=== PATIENT | male | born 1950 | race Two or more races ===

== ENCOUNTER 2016-03-26 08:50 | Day surgery (SDC) | payer MEDICARE, OTHER ==
[~2016-03-26 08:50] MED LIST: FENTANYL 250 MCG/5 ML AMP IV PRN; LACTATED RINGERS 1,000 ML IV SCH; MIDAZOLAM HCL 5 MG/5 ML VIAL IV PRN
[2016-03-26] MEDS ORDERED: IV START KIT ONE (08:53)
[2016-03-26] MEDS ORDERED: LACTATED RINGERS 1,000 ML ONE (08:53)
[2016-03-26] MEDS ORDERED: MIDAZOLAM HCL 5 MG/5 ML VIAL ONE (09:09)
[2016-03-26] MEDS ORDERED: FENTANYL 5 ML ONE (09:09)
--- NOTE | 2016-03-28 15:08 | SURGPATH ---
[facility] [address] [place] [id number] Patient Name: JUAN OH MR#: [id number] : 1950 Gender: M Specimen #: [id number] Collected: 03/26/2016 Received: 03/27/2016 Reported: 03/28/2016 Submitting Phys: JONI LEWIS Copy To Phys: [facility] VERA NUNEZ Clinical History / Pre-Operative Diagnosis: SURVEILLANCE Specimen Source / Surgical Procedure Performed: CECAL POLYP Interpretation: CECUM, POLYP, BIOPSY: - BENIGN MUCOSAL TAG Electronically Signed Out Lorraine Dillon M.D. Gross Description: The specimen is received in a formalin filled container labeled with the patient's name and "cecal polyp". A single alejandra biopsy is 0.6 x 0.2 x 0.1 cm. Totally embedded in one cassette. Z[place] Myrick PNormanANorman Microscopic Description: Sections show fragments of colonic mucosa with normal mucosal architecture. There is no significant inflammation or signs of microscopic colitis. No infectious organisms are identified and there is no dysplasia. 1: [id number] K63.89
== END 2016-03-26 10:50 | disposition home or self-care (01) ==
LOC: SDC 08:50
PROVIDERS: ATTEND Internal Medicine Gastroenterology
PROC: 0DBL8ZX Excision of Transverse Colon, Via Natural or Artificial Opening Endoscopic, Diagnostic (ICD-10-PCS; principal; 2016-03-26)
DX: Z12.11 Encounter for screening for malignant neoplasm of colon (principal); D12.0 Benign neoplasm of cecum; K57.30 Diverticulosis of large intestine without perforation or abscess without bleeding
CPT/HCPCS: 45380; J3010; J2250; J7120